=== PATIENT | female | born 1985 | race Caucasian/White ===

== ENCOUNTER 2018-04-06 01:30 | Emergency (ER) | payer OTHER ==
[2018-04-06 01:53] VITALS: BMI 29.0
[2018-04-06] MEDS ORDERED: SODIUM CHLORIDE 0.9% 1000 ML INFUS.BAG IV ONE (02:39)
--- NOTE | 2018-04-06 03:04 | PDOC ---
Attending Attestation - Resident Resident Name: Julian Morton - ED Attending Attestation I have performed the following: I have examined & evaluated the patient, The case was reviewed & discussed with the resident, I agree w/resident's findings & plan, Exceptions are as noted
[2018-04-06 03:34] LABS: URINE APPEARANCE CLEAR; URINE BILIRUBIN NEGATIVE (<2.0 mg/dL); URINE COLOR STRAW; URINE GLUCOSE (UA) NEGATIVE (NEGATIVE); URINE KETONE NEGATIVE (NEGATIVE); URINE LEUK ESTERASE 1+ (NEGATIVE); URINE NITRITE NEGATIVE (NEGATIVE); URINE PROTEIN NEGATIVE (NEGATIVE); URINE UROBILINOGEN NEGATIVE mg/dL (0.2-1.0)
[2018-04-06 03:50] LABS: EPI CELLS RARE /HPF (FEW); URINE BACTERIA RARE /hpf (NONE SEEN)
[2018-04-06] MEDS ORDERED: AMOX TR/POT CLAV 500MG/125MG TABLETS (FP) PO ONE (03:57)
[2018-04-06 04:05] LABS: BASO % 0.3 % (0-2.0); EOS % 1.4 % (0-4.5); HEMATOCRIT 31.7 % (32.4-45.2); HEMOGLOBIN 11.3 GM/dL (10.7-15.3); LYMPH % 20.9 % (8-40); MCH 32.3 pg (25.7-33.7); MCHC 35.5 g/dl (32.0-36.0); MEAN CELL VOLUME 90.9 fl (80-96); MEAN PLT VOLUME 8.2 fl (7.5-11.1); MONO % 7.2 % (3.8-10.2); NEUT % 70.2 % (42.8-82.8); PLATELET COUNT 216 K/MM3 (134-434); RBC 3.49 M/mm3 (3.60-5.2); RDW 12.9 % (11.6-15.6); WHITE BLOOD COUNT 8.6 K/mm3 (4.0-10.0)
--- NOTE | 2018-04-06 04:06 | PDOC ---
History of Present Illness - General Chief Complaint: Pain, Acute Stated Complaint: ABDOMINAL PAIN Time Seen by Provider: 04/06/18 01:43 History Source: Patient, Spouse Exam Limitations: No Limitations - History of Present Illness Initial Comments: 04/06/18 04:01 The patient is a 32F at 19 weeks who presents to the ER with back and abdominal pain. The patient states that 4-5 days ago, she began to develop R sided back pain. She cannot describe the pain but states that it is constant and worsening, now radiating throughout her entire abdomen. She denies any fevers, chills, nausea, vomiting, vaginal bleeding, and discharge. She also denies dysuria. She states that she had similar symptoms to this in her previous but does not recall what it was. Past History - Past Medical History Allergies/Adverse Reactions: Allergies Allergy/AdvReac Type Severity Reaction Status Date / Time No Known Allergies Allergy Verified 04/06/18 03:42 Home Medications: Ambulatory Orders Amox-Tr/K Cl [Augmentin - 500Mg Tablet] 1 tab PO BID #10 tab 04/06/18 COPD: No - Surgical History Abdominal Surgery: No - Immunization History Immunization Up to Date: Yes - Suicide/Smoking/Psychosocial Hx Smoking History: Never smoked Have you smoked in the past 12 months: No Information on smoking cessation initiated: No Hx Alcohol Use: No Drug/Substance Use Hx: No Review of Systems - Review of Systems Able to Perform ROS?: Yes Comments:: 04/06/18 04:06 GENERAL/CONSTITUTIONAL: No fever or chills. No weakness. HEAD, EYES, EARS, NOSE AND THROAT: No change in vision. No ear pain or discharge. No sore throat. CARDIOVASCULAR: No chest pain, palpitations, or lightheadedness. RESPIRATORY: No cough, wheezing, shortness of breath, or hemoptysis. GASTROINTESTINAL: Positive for abdominal pain. No nausea, vomiting, diarrhea, or constipation. GENITOURINARY: No dysuria, frequency, hematuria, or change in urination. MUSCULOSKELETAL: Positive for back pain. No joint or muscle swelling or pain. No neck pain. SKIN: No rash or lesions. NEUROLOGIC: No headache, numbness, tingling, focal weakness, loss of consciousness, or change in strength/sensation. Is the patient limited Ecuadorean proficient: No *Physical Exam - Vital Signs Last Vital Signs Temp Pulse Resp BP Pulse Ox 98.2 F 78 18 90/51 L 98 04/06/18 01:43 04/06/18 01:43 04/06/18 01:43 04/06/18 01:43 04/06/18 01:43 - Physical Exam Comments: 04/06/18 04:07 GENERAL: Well developed, well nourished. Awake and alert. No acute distress. HEENT: Normocephalic, atraumatic. Hearing grossly normal. Moist mucous membranes. PERRLA, EOMI. No conjunctival pallor. Sclera are non-icteric. NECK: Supple. Full ROM. No JVD. CARDIOVASCULAR: Regular rate and rhythm. No murmurs, rubs, or gallops. PULMONARY: No evidence of respiratory distress. Lungs clear to auscultation bilaterally. No wheezing, rales or rhonchi. ABDOMINAL: Soft. Tenderness to deep palpation over suprapubic abdomen. Non- distended. No rebound or guarding. GENITOURINARY: No CVA tenderness bilaterally. MUSCULOSKELETAL: Normal range of motion at all joints. No bony deformities or tenderness. EXTREMITIES: No cyanosis. No clubbing. No edema. No calf tenderness or swelling. SKIN: Warm and dry. Normal capillary refill. No rashes. No jaundice. NEUROLOGICAL: Alert, awake, appropriate. Cranial nerves 2-12 grossly intact. Normal speech. Gait is normal without ataxia. PSYCHIATRIC: Cooperative. Good eye contact. Appropriate mood and affect. Moderate Sedation - Procedure Monitoring Vital Signs: Procedure Monitoring Vital Signs Temperature 98.2 F 04/06/18 01:43 Pulse Rate 78 04/06/18 01:43 Respiratory Rate 18 04/06/18 01:43 Blood Pressure 90/51 L 04/06/18 01:43 O2 Sat by Pulse Oximetry (%) 98 04/06/18 01:43 ED Treatment Course - LABORATORY CBC & Chemistry Diagram: 04/06/18 03:56 04/06/18 03:56 - ADDITIONAL ORDERS Additional order review: Laboratory Results 04/06/18 03:25 Urine Color Straw Urine Appearance Clear Urine pH 6.0 Ur Specific Whiting 1.006 L Urine Protein Negative Urine Glucose (UA) Negative Urine Ketones Negative Urine Blood Negative Urine Nitrite Negative Urine Bilirubin Negative Urine Urobilinogen Negative Ur Leukocyte Esterase 1+ H Urine WBC (Auto) 1 Urine RBC (Auto) <1 Ur Epithelial Cells Rare Urine Bacteria Rare - RADIOLOGY Radiology Studies Ordered: Category Date Time Status LIMITED US [US] Stat Ultrasound 04/06/18 01:44 Taken - Medications Given in the ED: ED Medications Discontinued Medications Generic Name Dose Route Start Last Admin Trade Name Zachery PRN Reason Stop Dose Admin Sodium Chloride 1,000 ml 04/06/18 02:39 04/06/18 03:29 Normal Saline - IV 04/06/18 02:40 1,000 ml ONCE ONE Administration Medical Decision Making - Medical Decision Making 04/06/18 04:08 The patient is a 32F at 19 weeks with no PMH who presents to the ER with complaints of flank and suprapubic abdominal pain. Concern for UTI vs pyelo vs cystitis. UA indicates 1+ LE. Will treat UTI. Pending CBC and CMP. Transvaginal U/S shows live IUP with HR 144. 04/06/18 04:36 CBC and CMP WNL. Pt noted to be hypotensive on arrival (90's/50's). Given 1 L with no change in HR or BP. Pt is very well appearing. Will d/c with PCP and OB f/u. *DC/Admit/Observation/Transfer Diagnosis at time of Disposition: UTI (urinary tract infection) Qualifiers: Urinary tract infection type: site unspecified Hematuria presence: without hematuria Qualified Code(s): N39.0 - Urinary tract infection, site not specified - Discharge Dispostion Disposition: HOME Condition at time of disposition: Stable Decision to Admit order: No - Prescriptions Prescriptions: Amox-Tr/K Cl [Augmentin - 500Mg Tablet] 1 tab PO BID #10 tab - Referrals - Patient Instructions Printed Discharge Instructions: DI for Urinary Tract Infection (UTI) Additional Instructions: Please follow up with your primary care physician and [facility] in 1-2 days. Please return to the ER if you have any signs or symptoms of chest pain, shortness of breath, uncontrollable fever, chills, nausea, vomiting, numbness, tingling, or weakness in any part of your body, changes in vision, or slurred speech. Please take your medications as prescribed. Please return to the ER if symptoms persist, worsen, or new symptoms arise. Por favor christa un seguimiento con douglass mdico de atencin primaria en 1-2 armenta. Regrese a la poitr de emergencias si tiene signos o sntomas de dolor en el pecho , dificultad para respirar, fiebre incontrolable, escalofros, nuseas, vmitos , entumecimiento, hormigueo o debilidad en alguna parte de douglass cuerpo, cambios en la visin o dificultad para hablar. Por favor, tome shyala medicamentos segn lo prescrito. Regrese a la piotr de emergencias si los sntomas persisten, empeoran o surgen nuevos sntomas. - Post Discharge Activity
[2018-04-06 04:26] VITALS: TEMP 97.6
[2018-04-06 04:30] LABS: ALBUMIN 2.8 g/dl (3.4-5.0); ALK PHOS 53 U/L (45-117); ANION GAP 6 MMOL/L (8-16); BILIRUBIN,TOTAL 0.2 mg/dL (0.2-1); BLOOD UREA NITROGEN 8 mg/dL (7-18); CALCIUM 7.9 mg/dL (8.5-10.1); CHLORIDE 109 mmol/L (98-107); CO2 25 mmol/L (21-32); CREATININE 0.5 mg/dL (0.55-1.3); GLUCOSE,RANDOM 87 mg/dL (74-106); POTASSIUM 3.8 mmol/L (3.5-5.1); SGOT/AST 22 U/L (15-37); SGPT/ALT 42 U/L (13-61); SODIUM 139 mmol/L (136-145); TOT PROT 5.9 g/dl (6.4-8.2)
[2018-04-06] MEDS ORDERED: AMOX TR/POT CLAV 500MG/125MG TABLETS (FP) ONE (04:51)
[2018-04-06 04:59] VITALS: BP 107/66; PULSE 80
== END 2018-04-06 05:04 | disposition home or self-care (01) ==
LOC: JER 01:30
DX: O26.892 Other specified pregnancy related conditions, second trimester (principal); O23.42 Unspecified infection of urinary tract in pregnancy, second trimester; Z3A.19 19 weeks gestation of pregnancy
CPT/HCPCS: 36415; 76815-TC; 80053; 81003; 81015; 85025; 87086; 99282-25; J7030

== ENCOUNTER 2019-03-01 01:28 | Emergency (ER) | payer OTHER ==
--- NOTE | 2019-03-01 01:36 | PDOC ---
History of Present Illness - General Stated Complaint: PAIN Time Seen by Provider: 03/01/19 01:36 History Source: Patient Exam Limitations: No Limitations - History of Present Illness Initial Comments: 33 year old female with no PMH presented to ED for epigastric pain associated with nausea/vomiting/diarrhea since last night. Pt reported she ate beef around 1900 last night, then an hour later developed constant epigastric pain, then an hour or so later she developed nausea/vomiting/diarrhea. She denied blood in vomit/stool, recent travel, fever, chest pain, shortness of breath, dysuria, cough. She stated the diarrhea was loose and watery. Past History - Past Medical History Allergies/Adverse Reactions: Allergies Allergy/AdvReac Type Severity Reaction Status Date / Time Penicillins Allergy Intermediate Hives Verified 03/01/19 02:43 Home Medications: Ambulatory Orders Ondansetron [Zofran Odt -] 4 mg SL TID #9 od.tablet 03/01/19 COPD: No - Surgical History Abdominal Surgery: No - Immunization History Immunization Up to Date: Yes - Psycho Social/Smoking Cessation Hx Smoking History: Never smoked Have you smoked in the past 12 months: No Hx Alcohol Use: No Drug/Substance Use Hx: No Review of Systems - Review of Systems Able to Perform ROS?: Yes Comments:: ROS General: admitted to generalized weakness. denied fever, chills. HEENT: denied sore throat, rhinorrhea, ear pain. Cardiovascular: denied chest pain, palpitations, syncope, diaphoresis. Respiratory: denied shortness of breath, cough, sputum production, hemoptysis. Gastrointestinal: admitted to abdominal pain, nausea, vomiting, diarrhea. denied constipation, blood in stool. Genitourinary: denied dysuria, increased urinary frequency, hematuria, urinary incontinence, flank pain. Back: denied back pain. Musculoskeletal: denied joint pain, muscle pain, joint swelling. Neurological: denied headache, dizziness, numbness, tingling, weakness. Integumentary: denied rash, laceration, abrasion. Hematologic/Lymphatic: denied bruising or bleeding. PE Constitutional: Well-nourished, Well-developed, appearing stated age. HEENT: head is normocephalic, atraumatic. EOMI. PERRLA. Neck: supple. Full ROM. Cardiovascular: regular heart rhythm. no murmurs. no pericardial friction rub. Respiratory: clear to auscultation bilaterally. no crackles, rhonchi or wheezing. no stridor. Gastrointestinal: soft, nontender. tenderness to palpation of epigastrium. murphys negative. normal bowel sounds. no rebound, guarding, masses. Extremities: peripheral pulses intact. no lower extremity edema. Neurological: CN 2-12 grossly intact. moves all four extremities. Psych: awake, alert, oriented x3. follows commands. answers questions appropriately. ED Treatment Course - LABORATORY CBC & Chemistry Diagram: 03/01/19 01:47 03/01/19 01:47 Medical Decision Making - Medical Decision Making 33 year old female with above PMH presented to ED for epigastric pain, nausea, vomiting, diarrhea. Initial Vital Signs Temp Pulse Resp BP Pulse Ox 98.3 F 77 18 103/71 97 03/01/19 01:55 03/01/19 01:55 03/01/19 01:55 03/01/19 01:55 03/01/19 01:55 Afebrile. No tachycardia. No tachypnea. Mild hypotension. No hypoxia on room air. Labs ordered: CBC, CMP, serum , magnesium Imaging ordered: none Medications ordered: pepcid, zofran, normal saline bolus 1000 cc once 03/01/19 03:16 CBC WBC 9.7 K/mm3 (4.0-10.0) 03/01/19 01:47 RBC 4.85 M/mm3 (3.60-5.2) 03/01/19 01:47 Hgb 14.6 GM/dL (10.7-15.3) 03/01/19 01:47 Hct 43.7 % (32.4-45.2) D 03/01/19 01:47 MCV 90.2 fl (80-96) 03/01/19 01:47 MCH 30.2 pg (25.7-33.7) 03/01/19 01:47 MCHC 33.5 g/dl (32.0-36.0) 03/01/19 01:47 RDW 12.4 % (11.6-15.6) 03/01/19 01:47 Plt Count 225 K/MM3 (134-434) D 03/01/19 01:47 MPV 8.7 fl (7.5-11.1) 03/01/19 01:47 Absolute Neuts (auto) 7.3 K/mm3 (1.5-8.0) 03/01/19 01:47 Neutrophils % 75.3 % (42.8-82.8) 03/01/19 01:47 Lymphocytes % 18.1 % (8-40) D 03/01/19 01:47 Monocytes % 5.5 % (3.8-10.2) 03/01/19 01:47 Eosinophils % 0.6 % (0-4.5) D 03/01/19 01:47 Basophils % 0.5 % (0-2.0) 03/01/19 01:47 Nucleated RBC % 0 % (0-0) 03/01/19 01:47 CMP Sodium 141 mmol/L (136-145) 03/01/19 01:47 Potassium 3.5 mmol/L (3.5-5.1) 03/01/19 01:47 Chloride 109 mmol/L (98-107) H 03/01/19 01:47 Carbon Dioxide 23 mmol/L (21-32) 03/01/19 01:47 Anion Gap 9 MMOL/L (8-16) 03/01/19 01:47 BUN 18.2 mg/dL (7-18) H 03/01/19 01:47 Creatinine 0.9 mg/dL (0.55-1.3) 03/01/19 01:47 Est GFR (CKD-EPI)AfAm 96.69 03/01/19 01:47 Est GFR (CKD-EPI)NonAf 83.42 03/01/19 01:47 Random Glucose 115 mg/dL (74-106) H 03/01/19 01:47 Calcium 9.1 mg/dL (8.5-10.1) 03/01/19 01:47 Magnesium 1.9 mg/dL (1.8-2.4) 03/01/19 01:47 Total Bilirubin 0.7 mg/dL (0.2-1) 03/01/19 01:47 AST 36 U/L (15-37) 03/01/19 01:47 ALT 51 U/L (13-61) 03/01/19 01:47 Alkaline Phosphatase 90 U/L (45-117) 03/01/19 01:47 Troponin I < 0.02 ng/ml (0.00-0.05) 03/01/19 01:47 Total Protein 7.6 g/dl (6.4-8.2) 03/01/19 01:47 Albumin 4.0 g/dl (3.4-5.0) 03/01/19 01:47 Lipase 131 U/L (73-393) 03/01/19 01:47 Serum , Qual Negative 03/01/19 01:47 03/01/19 03:21 Pt informed of results. Pt reported resolution of vomiting. Pt reported that her epigastric pain is mildly improved, but she is still in discomfort. Medications ordered: maalox, viscous lidocaine Imaging ordered: CT abdomen/pelvis 03/01/19 05:27 CT showed gastroenterocolitis. No other acute pathology. Dispo: Discharged Discharge - Discharge Information Problems reviewed: Yes Clinical Impression/Diagnosis: Nausea vomiting and diarrhea Condition: Improved Disposition: HOME - Admission No - Additional Discharge Information Prescriptions: Ondansetron [Zofran Odt -] 4 mg SL TID #9 od.tablet - Follow up/Referral Referrals: Ana Veras FNP [Primary Care Provider] - - Patient Discharge Instructions Patient Printed Discharge Instructions: [place] Diet, DI for Viral Gastroenteritis -- Adult, Gastroenteritis Diet Additional Instructions: Follow up with your primary care doctor within 3 days. Your care is not complete until you follow up. I have sent a prescription to your pharmacy for nausea, take as advised on label. Drink gatorade/pedialtye to replace your electrolytes and stay hydrated. Return to the Emergency Department for increasing pain, chest pain, shortness of breath, vomiting despite prescription use, fever>104F, fever>5 days, or any other new, worsening or concerning symptoms. Take Tylenol over the counter for pain, take as advised on label. Eat a bland diet - bread, rice, toast, applesauce - until symptoms improve. Paramjit un seguimiento con barrios mdico de atencin primaria dentro de los 3 armenta. Barrios atencin no estar completa hasta que realice el seguimiento. He enviado geni receta a barrios farmacia por nuseas, tmela nelli se indica en la etiqueta. Marisa gatorade / pedialtye para reemplazar shayla electrolitos y mantenerse hidratado. Regrese al Departamento de Emergencias para aumentar el dolor, dolor en el pecho , falta de aliento, vmitos a pesar del uso de medicamentos recetados, fiebre> 104F, fiebre> 5 armenta o cualquier otro sntoma nuevo, que empeore o se trate. Hoven Tylenol sin receta mdica para el dolor, tmelo nelli se indica en la etiqueta. Coma geni dieta blanda (mc, arroz, tostadas, pur de manzana) hasta que los sntomas mejoren. Print Language: SAMI - Post Discharge Activity Work/Back to School Note: Back to Work
[2019-03-01] MEDS ORDERED: SODIUM CHLORIDE 1,000 ML IV STA (01:42)
[2019-03-01] MEDS ORDERED: ONDANSETRON 4 MG/2 ML VIAL IVPUSH ONE (01:42)
[2019-03-01] MEDS ORDERED: FAMOTIDINE 20 MG/50 ML IVPB 20 MG/50 ML MG IVPB ONE ×2 (01:42→02:12)
[2019-03-01 01:55] LABS: BASO % 0.5 % (0-2.0); EOS % 0.6 % (0-4.5); HEMATOCRIT 43.7 % (32.4-45.2); HEMOGLOBIN 14.6 GM/dL (10.7-15.3); LYMPH % 18.1 % (8-40); MCH 30.2 pg (25.7-33.7); MCHC 33.5 g/dl (32.0-36.0); MEAN CELL VOLUME 90.2 fl (80-96); MEAN PLT VOLUME 8.7 fl (7.5-11.1); MONO % 5.5 % (3.8-10.2); NEUT % 75.3 % (42.8-82.8); PLATELET COUNT 225 K/MM3 (134-434); RBC 4.85 M/mm3 (3.60-5.2); RDW 12.4 % (11.6-15.6); WHITE BLOOD COUNT 9.7 K/mm3 (4.0-10.0)
[2019-03-01 02:11] LABS: MAGNESIUM 1.9 mg/dL (1.8-2.4)
[2019-03-01] MEDS ORDERED: ONDANSETRON 4 MG/2 ML VIAL ONE (02:11)
[2019-03-01 02:18] LABS: ALK PHOS 90 U/L (45-117); ANION GAP 9 MMOL/L (8-16); BILIRUBIN,TOTAL 0.7 mg/dL (0.2-1); BLOOD UREA NITROGEN 18.2 mg/dL (7-18); CALCIUM 9.1 mg/dL (8.5-10.1); CHLORIDE 109 mmol/L (98-107); CO2 23 mmol/L (21-32); CREATININE 0.9 mg/dL (0.55-1.3); GLUCOSE,RANDOM 115 mg/dL (74-106); POTASSIUM 3.5 mmol/L (3.5-5.1); SGOT/AST 36 U/L (15-37); SGPT/ALT 51 U/L (13-61); SODIUM 141 mmol/L (136-145); TOT PROT 7.6 g/dl (6.4-8.2)
[2019-03-01 02:33] VITALS: BP 103/71; PULSE 77; TEMP 98.3; BMI 26.0
[2019-03-01] MEDS ORDERED: LIDOCAINE VISCOUS 2% ORAL/TOP 20 ML UNIT-DOSE CUP MM ONE (03:17)
[2019-03-01] MEDS ORDERED: MAG HYDROX/AL HYDROX/SIMETH 30 ML UNIT-DOSE CUP PO ONE (03:17)
[2019-03-01] MEDS ORDERED: LIDOCAINE VISCOUS 2% ORAL/TOP 20 ML UNIT-DOSE CUP ONE (03:20)
[2019-03-01] MEDS ORDERED: MAG HYDROX/AL HYDROX/SIMETH 30 ML UNIT-DOSE CUP ONE (03:21)
--- NOTE | 2019-03-01 04:14 | PDOC ---
Attending Attestation - Resident Resident Name: PennyRos - ED Attending Attestation I have performed the following: I have examined & evaluated the patient, The case was reviewed & discussed with the resident, I agree w/resident's findings & plan - HPI HPI: 03/01/19 04:15 see resident hpi - Physicial Exam PE: 03/01/19 04:15 agree with resident exam - Medical Decision Making 03/01/19 04:15 33-year-old female with vomiting abdominal pain and diarrhea On reexam patient has lower abdominal pain including tenderness over McBurney's point Plan for CT scan of the abdomen and pelvis to rule out appendicitis versus gastroenteritis If tolerating p.o. will DC pending CT results
[2019-03-01 04:54] LABS: PH,URINE 5.5 (5.0-8.0); URINE APPEARANCE CLEAR; URINE BILIRUBIN NEGATIVE (NEGATIVE); URINE COLOR YELLOW; URINE GLUCOSE (UA) NEGATIVE (NEGATIVE); URINE KETONE NEGATIVE (NEGATIVE); URINE LEUK ESTERASE NEGATIVE (NEGATIVE); URINE NITRITE NEGATIVE (NEGATIVE); URINE PROTEIN NEGATIVE (NEGATIVE); URINE UROBILINOGEN 0.2 mg/dL (0.2-1.0)
== END 2019-03-01 05:57 | disposition home or self-care (01) ==
LOC: JER 01:28
PROC: 3E033GC Introduction of Other Therapeutic Substance into Peripheral Vein, Percutaneous Approach (ICD-10-PCS; principal; 2019-03-01)
DX: R11.2 Nausea with vomiting, unspecified (principal); R19.7 Diarrhea, unspecified; Z88.0 Allergy status to penicillin
CPT/HCPCS: 36415; 74177-TC; 80053; 81003; 83690; 83735; 84484; 84703; 85025; 87086; 99284-25; J7030

== ENCOUNTER 2019-03-07 13:50 | Emergency (ER) | payer SELFPAY ==
--- NOTE | 2019-03-07 13:55 | PDOC ---
Rapid Medical Evaluation Time Seen by Provider: 03/07/19 13:52 Medical Evaluation: Allergies Allergy/AdvReac Type Severity Reaction Status Date / Time Penicillins Allergy Intermediate Hives Verified 03/01/19 02:43 03/07/19 13:52 CC: waxing and waning left arm pain and numbness x3 days PE: No focal findings Orders: labs, urine Patient will proceed to ER for continued evaluation. Discharge Disposition - Diagnosis Arm paresthesia, left - Referrals - Patient Instructions - Post Discharge Activity
[2019-03-07 13:57] VITALS: BP 110/69; PULSE 70; TEMP 98.5; BMI 25.7
[2019-03-07 14:44] LABS: BASO % 0.7 % (0-2.0); HEMATOCRIT 38.5 % (32.4-45.2); HEMOGLOBIN 13.3 GM/dL (10.7-15.3); LYMPH % 37.4 % (8-40); MCHC 34.6 g/dl (32.0-36.0); MEAN CELL VOLUME 89.8 fl (80-96); MEAN PLT VOLUME 8.4 fl (7.5-11.1); MONO % 7.4 % (3.8-10.2); NEUT % 53.5 % (42.8-82.8); PLATELET COUNT 258 K/MM3 (134-434); RBC 4.29 M/mm3 (3.60-5.2); RDW 12.5 % (11.6-15.6); WHITE BLOOD COUNT 6.4 K/mm3 (4.0-10.0)
[2019-03-07 15:01] LABS: URINE APPEARANCE CLEAR; URINE BILIRUBIN NEGATIVE (NEGATIVE); URINE COLOR YELLOW; URINE GLUCOSE (UA) NEGATIVE (NEGATIVE); URINE KETONE NEGATIVE (NEGATIVE); URINE LEUK ESTERASE NEGATIVE (NEGATIVE); URINE NITRITE NEGATIVE (NEGATIVE); URINE PROTEIN NEGATIVE (NEGATIVE); URINE UROBILINOGEN 0.2 mg/dL (0.2-1.0)
--- NOTE | 2019-03-07 15:09 | PDOC ---
History of Present Illness - General Chief Complaint: Pain Stated Complaint: LT. ARM NUMBING/ PAIN Time Seen by Provider: 03/07/19 13:52 History Source: Patient Exam Limitations: No Limitations Past History - Travel Traveled outside of the country in the last 30 days: No Close contact w/someone who was outside of country & ill: No - Past Medical History Allergies/Adverse Reactions: Allergies Allergy/AdvReac Type Severity Reaction Status Date / Time Penicillins Allergy Intermediate Hives Verified 03/07/19 13:57 Home Medications: Ambulatory Orders Ondansetron [Zofran Odt -] 4 mg SL TID #9 od.tablet 03/01/19 COPD: No - Surgical History Abdominal Surgery: No - Immunization History Immunization Up to Date: Yes - Psycho Social/Smoking Cessation Hx Smoking History: Never smoked Have you smoked in the past 12 months: No Information on smoking cessation initiated: No Hx Alcohol Use: No Drug/Substance Use Hx: No Review of Systems - Review of Systems Able to Perform ROS?: Yes Comments:: 03/07/19 15:54 CONSTITUTIONAL: Absent: fever, chills, diaphoresis, generalized weakness, malaise, loss of appetite HEENT: Absent: rhinorrhea, nasal congestion, throat pain, throat swelling, difficulty swallowing, mouth swelling, ear pain, eye pain, visual Changes CARDIOVASCULAR: Absent: chest pain, loss of consciousness, palpitations, irregular heart rate, peripheral edema RESPIRATORY: Absent: cough, shortness of breath, dyspnea with exertion, orthopnea, wheezing, stridor, hemoptysis GASTROINTESTINAL: Absent: abdominal pain, abdominal distension, nausea, vomiting, diarrhea, constipation, melena, hematochezia GENITOURINARY: Absent: dysuria, frequency, urgency, hesitancy, hematuria, flank pain, genital pain MUSCULOSKELETAL: Present: L arm numbness Absent: myalgia, arthralgia, joint swelling SKIN: Absent: rash, itching, pallor HEMATOLOGIC/IMMUNOLOGIC: Absent: easy bleeding, easy bruising, lymphadenopathy, frequent infections ENDOCRINE: Absent: unexplained weight gain, unexplained weight loss, heat intolerance, cold intolerance NEUROLOGIC: Absent: headache, focal weakness or paresthesias, dizziness, unsteady gait, seizure, mental status changes, bladder or bowel incontinence PSYCHIATRIC: Absent: anxiety, depression, suicidal or homicidal ideation, hallucinations. Is the patient limited Greenlandic proficient: No *Physical Exam - Vital Signs Last Vital Signs Temp Pulse Resp BP Pulse Ox 98.5 F 70 17 110/69 99 03/07/19 13:54 03/07/19 13:54 03/07/19 13:54 03/07/19 13:54 03/07/19 13:54 - Physical Exam Comments: 03/07/19 15:56 GENERAL: Well developed, well nourished. Awake and alert. No acute distress. HEENT: Normocephalic, atraumatic. PERRLA, EOMI. No conjunctival pallor. Sclera are non- icteric. Moist mucous membranes. NECK: Supple. Full ROM. CARDIOVASCULAR: Regular rate and rhythm. No murmurs, rubs, or gallops. Distal pulses are 2+ and symmetric. PULMONARY: No evidence of respiratory distress. Lungs clear to auscultation bilaterally. No wheezing, rales or rhonchi. MUSCULOSKELETAL (+) Phalans testing and tinel's testing. Pain over the distal median nerve. No associated swelling. Normal range of motion at all joints. No bony deformities or tenderness. No CVA tenderness. EXTREMITIES: No cyanosis. No clubbing. No edema. No calf tenderness. SKIN: Warm and dry. Normal capillary refill. No rashes. No jaundice. NEUROLOGICAL: Alert, awake, appropriate. Cranial nerves 2-12 intact. No deficits to light touch and temperature in face, upper extremities and lower extremities. No motor deficits in the in face, upper extremities and lower extremities. Normoreflexic in the upper and lower extremities. Normal speech. Toes are down- going bilaterally. Gait is normal without ataxia. PSYCHIATRIC: Cooperative. Good eye contact. Appropriate mood and affect. ED Treatment Course - LABORATORY CBC & Chemistry Diagram: 03/07/19 14:30 03/07/19 14:30 - ADDITIONAL ORDERS Additional order review: 03/07/19 14:30 RBC 4.29 MCV 89.8 MCHC 34.6 RDW 12.5 MPV 8.4 Neutrophils % 53.5 D Lymphocytes % 37.4 D Monocytes % 7.4 Eosinophils % 1.0 Basophils % 0.7 Medical Decision Making - Medical Decision Making 03/07/19 15:58 The patient is a 33-year-old female with no past medical history who presents to the ER with 2 days of left arm pain. She states that the pain starts in her wrist and radiates up her arm. She states that it is a shooting pain in the pain is worse at night. Denies fevers, chills, trauma, weakness to the extremity, rash. The patient does have a . A/P: Left arm pain and numbness On exam patient with a positive Phalen's and Tinel's test on the left side. Patient is right-hand dominant Basic lab work ordered from E is negative, electrolytes normal. Likely a carpal tunnel. Wrist brace applied Ortho follow-up given Discharge home. Return precautions given I discussed the physical exam findings, ancillary test results and final diagnoses with the patient. I answered all of the patient's questions. The patient was satisfied with the care received and felt comfortable with the discharge plan and treatment plan. The Patient agrees to follow up with the primary care physician/specialist within 24-72 hours. Return precautions were given. Discharge - Discharge Information Problems reviewed: Yes Clinical Impression/Diagnosis: Carpal tunnel syndrome Qualifiers: Laterality: left Qualified Code(s): G56.02 - Carpal tunnel syndrome, left upper limb Condition: Stable Disposition: HOME - Admission No - Follow up/Referral Referrals: Ana Veras FNP [Primary Care Provider] - Nergo Belcher MD [Staff Physician] - - Patient Discharge Instructions Patient Printed Discharge Instructions: DI for Carpal Tunnel Syndrome Additional Instructions: You were evaluated for your arm pain today. You most likely have carpal tunnel. You are provided some reading information about carpal tunnel Please follow-up with orthopedics in 1 week if your symptoms are not improving. A referral is been provided for you. Please wear the wrist brace except to shower for 1 week to help with your symptoms. Wear this at night while you are sleeping as well. You may take Tylenol 650 mg every 6 hours as needed for pain. Return to the ER for worsening pain, fever, lightheadedness or if you have any changes in your symptoms. Usted fue evaluado por douglass dolor en el fabienne reza. Lo ms probable es que tenga tnel carpiano. Se le proporciona informacin de lectura sobre el tnel carpiano. Paramjit un seguimiento con ortopedia en 1 semana si shayla sntomas no mejoran. Se le gordon proporcionado geni referencia. Use la muequera, excepto para baarse mathew 1 semana para ayudar con shayla sntomas. selo por la noche mientras duerme tambin. Puede valentina Tylenol 650 mg cada 6 horas segn sea necesario para el dolor. Regrese a la piotr de emergencias para empeorar el dolor, la fiebre, el aturdimiento o si tiene algn cambio en shayla sntomas. - Post Discharge Activity Work/Back to School Note: Back to Work
[2019-03-07 15:12] LABS: BILIRUBIN,TOTAL 0.4 mg/dL (0.2-1); BLOOD UREA NITROGEN 11.7 mg/dL (7-18); CALCIUM 8.9 mg/dL (8.5-10.1); CREATININE 0.7 mg/dL (0.55-1.3); TOT PROT 7.2 g/dl (6.4-8.2)
== END 2019-03-07 15:55 | disposition home or self-care (01) ==
LOC: JER 13:50
DX: G56.02 Carpal tunnel syndrome, left upper limb (principal); Z88.0 Allergy status to penicillin
CPT/HCPCS: 36415; 80053; 81003; 85025; 99282-25